=== PATIENT | male | born 1975 | race Caucasian/White ===

== ENCOUNTER 2025-02-15 13:34 | Outpatient (REF) | payer OTHER, SELFPAY | END 2025-02-15 13:35 | disposition home or self-care (01) | LOC: RAD 13:34 | PROVIDERS: PCP Nurse Practitioner Adult Health; Visit Provider Chiropractor | DX: I45.10 Unspecified right bundle-branch block (principal); I51.7 Cardiomegaly | CPT/HCPCS: 93306 ==